=== PATIENT | female | born 1985 | race Caucasian/White ===

== ENCOUNTER → 2019-12-23 | Outpatient (CLI) | payer OTHER, SELFPAY ==
[2019-12-30 14:18] LABS: HPV Reflexed? NOT INDICATED
== END | disposition home or self-care (01) ==
LOC: LABSPEC 13:44
PROVIDERS: Visit Provider Obstetrics & Gynecology
DX: Z12.4 Encounter for screening for malignant neoplasm of cervix (principal)
CPT/HCPCS: 88175; G0145

== ENCOUNTER → 2022-02-13 | Outpatient (CLI) | payer OTHER, SELFPAY ==
[2022-02-13 11:24] LABS: Follicle Stimulating Hormone 73.5 mIU/mL; Luteinizing Hormone 31.6 mIU/mL
[2022-02-25 12:34] LABS: HPV APTIMA, High Risk Negative (Negative)
== END | disposition home or self-care (01) ==
LOC: WOBLAB 09:52
PROVIDERS: PCP Family Medicine; Visit Provider Student in an Organized Health Care Education/Training Program
DX: Z12.4 Encounter for screening for malignant neoplasm of cervix (principal)
CPT/HCPCS: 36415; 83001; 83002; 87624; 88175; G0145

== ENCOUNTER → 2023-12-30 | Outpatient (CLI) | payer OTHER, SELFPAY ==
[2024-01-06 11:08] LABS: HPV APTIMA, High Risk Negative (Negative)
== END | disposition home or self-care (01) ==
LOC: LABSPEC 10:07
PROVIDERS: PCP Family Medicine; Referring Provider Nurse Practitioner Family; Visit Provider Nurse Practitioner Family
DX: Z12.5 Encounter for screening for malignant neoplasm of prostate (principal)
CPT/HCPCS: 87624; 88175; G0145

== ENCOUNTER → 2024-01-06 | Outpatient (CLI) | payer OTHER, SELFPAY | END | disposition home or self-care (01) | LOC: OPUS 14:20 | PROVIDERS: PCP Family Medicine; Referring Provider Nurse Practitioner Family; Visit Provider Nurse Practitioner Family | DX: N63.10 Unspecified lump in the right breast, unspecified quadrant (principal); N63.20 Unspecified lump in the left breast, unspecified quadrant | CPT/HCPCS: 76642; 77062; 77066; G0279 ==

== ENCOUNTER → 2024-01-13 | Outpatient (CLI) | payer OTHER, SELFPAY ==
--- NOTE | 2024-01-13 10:00 | BRBX_PTH ---
PATIENT: ROBBIE REARDON LOC: [facility] U#:[id number] AGE/SX: 38/F ROOM: RE01/13/[address]: Dr. Blake Hylton MD : 1985 BED: DIS: 01/13/2024 SPEC #: [id number] RECD: 01/13/24 10:37 STATUS: TINA REJeet #: [id number] MARIANA: 01/13/24 10:[address]: Blake Hylton DEPT: SURGICAL PATHOLOGY RECD BY: Stevo Dong ENTERED: 01/13/24 12:04 SP TYPE: BREAST BX OTHR DR: Herminia Dixon PA-C Tissues: A - Right breast, NOS B - Right breast, NOS C - Left breast, NOS Procedures: Surgery Specimen Level IV HEADER OPERATION: Right breast biopsy x2 and left breast x1 PRE-OP DIAGNOSIS: Right breast masses and left breast mass TISSUE SUBMITTED: A- Right breast tissue - 8o'clock, B- Right breast tissue - 9o'clock, C- Left breast tissue Ischemic Time: 1 minute Fixation Time: 10 hours MICROSCOPIC DIAGNOSIS A. Right breast tissue, 8o'clock, core biopsy: Hyalinized fibroadenoma. Negative for atypia or malignancy. See comment. B. Right breast tissue, 9o'clock, core biopsy: Extensive fat necrosis, chronic inflammation and foreign body giant cell reaction. Negative for atypia or malignancy. See comment. C. Left breast tissue, core biopsy: Hyalinized fibroadenoma. Negative for atypia or malignancy. See comment. 01/14/2024 COMMENT Correlation with clinical, radiologic findings and appropriate follow up are necessary. MICROSCOPIC DESCRIPTION Slides are reviewed. GROSS DESCRIPTION A. Received in fixative is one container labeled with the patient's name and designated Right breast biopsy - 8o'clock. The specimen consists of multiple irregular fragments of yellow-white tissue cores that in aggregate measure 1.0 x 0.4 x 0.1 cm. The specimen is totally submitted in one cassette. B. Received in fixative is one container labeled with the patient's name and designated Right breast tissue - 9o'clock. The specimen consists of multiple irregular fragments of yellow-white tissue cores that in aggregate measure 1.0 x 0.3 x 0.1 cm. The specimen is totally submitted in one cassette. C. Received in fixative is one container labeled with the patient's name and designated Left breast tissue. The specimen consists of multiple irregular fragments of white tissue cores that in aggregate measure 0.6 x 0.3 x 0.1 cm. The specimen is totally submitted in one cassette. 01/13/2024 TC:1 CPT:38008x0
== END | disposition home or self-care (01) ==
LOC: LABSPEC 10:53
PROVIDERS: PCP Family Medicine; Referring Provider Surgery; Visit Provider Surgery
DX: D24.1 Benign neoplasm of right breast (principal); D24.2 Benign neoplasm of left breast
CPT/HCPCS: 88305

== ENCOUNTER → 2024-06-22 | Outpatient (CLI) | payer OTHER, SELFPAY ==
--- NOTE | 2024-06-22 09:00 | US_ITS ---
PROCEDURE: BREAST LIMITED UNILATERAL 06/22/2024 REASON FOR EXAM: LEFT BREAST BIOPSY TECHNIQUE: Targeted left breast ultrasound. COMPARISON: Left breast ultrasound dated 12/2019 and mammogram study dated 01/06/2024 FINDINGS: Left breast ultrasound was targeted to the left breast mass that was previously biopsied. There is a solid, hypoechoic, slightly heterogeneous, smoothly marginated mass in the left breast at the 6 o'clock, 4 cm from the nipple position measuring 1.5 x 0.9 x 0.6 cm. This mass does not produce any posterior shadowing. There is an echogenic clip along the superior margin. The mass was shown to represent a benign process. US/Breast Limited Unilateral IMPRESSION: Impression: There is a benign-appearing mass in the left breast that was previo usly biopsied. The patient should return in December 2024 for routine screening mammography. Birads: BI-RADS 2: BENIGN. RECOMMEND ANNUAL MAMMOGRAPHIC SCREENING. Reading Location: [id number]
--- NOTE | 2024-06-22 09:00 | US_ITS ---
PROCEDURE: BREAST LIMITED UNILATERAL 06/22/2024 REASON FOR EXAM: RIGHT BREAST BIOPSY Mass was biopsied. Biopsy was benign. Short-term follow-up exam to evaluate. Document stability. TECHNIQUE: Targeted left breast ultrasound. COMPARISON: Ultrasound dated 01/06/2024 FINDINGS: Left breast ultrasound was targeted to the prior biopsy sites. There is a solid, hypoechoic, smoothly marginated mass in the right breast at the 8 o'clock, 5 cm from the nipple position measuring 15 x 14 x 14 mm. This mass does produce a small amount of posterior shadowing. This mass was biopsied and shown to represent a benign process. A radiopaque clip is seen adjacent to the mass. There is a heterogeneous solid hypoechoic mass identified at the 9 o'clock, 6 cm from the nipple position measuring 11 x 9 x 8 mm. No echogenic clip is seen. No cystic component is noted. US/Breast Limited Unilateral IMPRESSION: Impression: There are 2 masses in the right breast which have been previously b iopsied and shown to represent benign processes. The patient should return in December 2024 for routine yearly screening mammogr aphy. Birads: BI-RADS 2: BENIGN. RECOMMEND ANNUAL MAMMOGRAPHIC SCREENING. Wall that was like something Reading Location: [id number]
== END | disposition home or self-care (01) ==
PROVIDERS: PCP Family Medicine; Referring Provider Surgery; Visit Provider Surgery
DX: N63.10 Unspecified lump in the right breast, unspecified quadrant (principal); N63.20 Unspecified lump in the left breast, unspecified quadrant
CPT/HCPCS: 76642

== ENCOUNTER → 2024-12-30 | Outpatient (CLI) | payer OTHER, SELFPAY | END | disposition home or self-care (01) | LOC: LABSPEC 10:42 | PROVIDERS: PCP Family Medicine; Visit Provider Nurse Practitioner Family | DX: Z12.4 Encounter for screening for malignant neoplasm of cervix (principal) | CPT/HCPCS: 87624; 88175; G0145 ==

== ENCOUNTER → 2025-01-08 | Outpatient (CLI) | payer OTHER, SELFPAY ==
--- NOTE | 2025-01-08 07:30 | BI_ITS ---
EXAM: SCRN MAMM (CAD)W/ROBERTO BILAT DATE: 01/08/2025 CLINICAL HISTORY: F, Age 39 y/o , SCREEN FOR BREAST CANCER Prior left breast biopsies. TECHNIQUE: Procedure Code: [id number] Modality: MG Procedure: SCRN MAMM (CAD)W/ROBERTO BILAT COMPARISON: Prior exam(s) dated January 06, 2024.. FINDINGS: TISSUE DENSITY: There are scattered areas of fibroglandular density. Bilateral Breast Mammographic Findings: Stable 1.4 cm well-defined nodule in the slightly upper lateral aspect of the right breast. A tissue clip marker is seen within it. The previously seen nodular density in the anterior upper lateral aspect of the right breast is not seen at this time. A tissue clip marker is seen within it. A pacemaker battery pack is seen in the left axilla. Stable calcifications in the deep central inferior aspect of the left breast in keeping with prior multiple thoracic surgeries. No suspicious masses, areas of developing architectural distortion, or suspicious calcifications. BI/SCRN MAMM (CAD)W/ROBERTO BILAT IMPRESSION: Stable well-defined nodule in the upper lateral aspect of the right breast with a tissue clip marker within it. Resolution of the 2nd nodular density in the anterior upper lateral aspect of the right breas t. OVERALL FINAL ASSESSMENT BI-RADS 2: BENIGN RECOMMENDATION: Routine annual follow-up in 1 Year Additional Recommendation none A letter with findings and recommendations will be mailed to the patient. Reading Location: [place] [id number]
== END | disposition home or self-care (01) ==
LOC: OPBI 07:11
PROVIDERS: PCP Family Medicine; Referring Provider Nurse Practitioner Family; Visit Provider Nurse Practitioner Family
DX: Z12.31 Encounter for screening mammogram for malignant neoplasm of breast (principal)
CPT/HCPCS: 77063; 77067